=== PATIENT | female | born 1960 | race Caucasian/White ===

== ENCOUNTER → 2019-11-07 10:50 | Outpatient (BNVA) | payer OTHER, SELFPAY | PROVIDERS: Family Provider Family Medicine; Visit Provider Obstetrics & Gynecology | DX: N93.9 Abnormal uterine and vaginal bleeding, unspecified (principal) | CPT/HCPCS: 88305 ==

== ENCOUNTER → 2022-01-02 14:55 | Outpatient (BNVA) | payer OTHER, SELFPAY | PROVIDERS: Family Provider Family Medicine; PCP Family Medicine; Visit Provider Registered Nurse Neonatal Intensive Care | DX: M25.562 Pain in left knee (principal) | CPT/HCPCS: 73562 ==

== ENCOUNTER → 2022-01-25 13:56 | Outpatient (BNVA) | payer OTHER, SELFPAY | PROVIDERS: Family Provider Family Medicine; PCP Family Medicine; Visit Provider Orthopaedic Surgery | DX: M43.16 Spondylolisthesis, lumbar region (principal); M43.17 Spondylolisthesis, lumbosacral region | CPT/HCPCS: 72110 ==

== ENCOUNTER 2022-02-09 09:47 | Outpatient (CLI) | payer OTHER, SELFPAY ==
--- NOTE | 2022-02-09 09:30 | MR_ITS ---
WS: [id number] MRI LEFT KNEE NONCONTRAST TECHNIQUE: Axial PD, coronal PD fat sat, coronal PD, sagittal PD, and sagittal PD fat-sat images obta ined. CLINICAL INFORMATION: pain COMPARISON: None. FINDINGS: Distal quadriceps and patella tendons are intact. Large suprapatellar effusion. ACL is not visualized and appears completely torn. Normal PCL. ACL contusion pattern with bone contusions involving the an terolateral femoral condyle and posterior lateral tibial plateau. Chronic thinning of the medial and lateral meniscus. Moderate chondromalacia patella. Medial and lateral patellar retinaculum appear intact. Subcutaneous edema in the soft tissues. Lobulated popliteal cyst measuring 1.5 x 2.1 x 5.3 cm AP by transverse by craniocaudal. Evidence of posterior lateral corner injury with laxity anterior involving the lateral collateral lig ament complex with high-grade tear and biceps femoris distally. Tear of the popliteus and arcuate lig ament. Associated tear involving the posterior lateral meniscus with peripheral extrusion. Associated edema in this location. MR/MR knee LT wo con* [id number] IMPRESSION: 1. High-grade complete tear of the ACL. No normal fibers visualized. PCL appea rs intact. 2. Evidence of posterolateral corner injury with high-grade tear involving the lateral collateral ligament complex with laxity. Associated tears involving th e popliteus and arcuate ligament complex with fluid and edema. Posterior hernia tion and tear of the posterior lateral meniscus with associated fluid. 3. Large suprapatellar effusion. 4. ACL pattern contusion described above. 5. Lobulated popliteal cyst measuring 1.5 x 2.1 x 5.3 cm AP by transverse by c raniocaudal. Outbridge grading: grade III: partial-thickness cartilage loss with focal ulcer ation
== END 2022-02-09 09:48 | disposition home or self-care (01) ==
LOC: RAD 09:48
PROVIDERS: PCP Family Medicine; Visit Provider Orthopaedic Surgery
DX: M25.462 Effusion, left knee (principal); S83.512A Sprain of anterior cruciate ligament of left knee, initial encounter; M71.22 Synovial cyst of popliteal space [Baker], left knee; X58.XXXA Exposure to other specified factors, initial encounter
CPT/HCPCS: 73721

== ENCOUNTER 2022-02-09 11:27 | Outpatient (CLI) | payer OTHER, SELFPAY ==
--- NOTE | 2022-02-09 12:30 | MR_ITS ---
WS: [id number] MRI LUMBAR SPINE NONCONTRAST TECHNIQUE: Sagittal T1, T2 and STIR imaging. Axial T1 and T2 imaging. CLINICAL INFORMATION: Low back pain COMPARISON: MRI 2011 FINDINGS: Mild lumbar curve. No acute compression. Disc space narrowing worse L4-L5 and L5-S1. Severe central canal stenosis L3-L4 L1-L2: Normal. L2-L3: Normal. L3-L4: Grade 1 anterolisthesis L3 on L4. Disc bulging in combination with facet arthropathy and ligam entum flavum hypertrophy results in severe central canal stenosis. Moderate facet arthropathy. Imping ement traversing L4 nerve roots bilaterally. Foramen are patent. L4-L5: Mild disc bulging with impingement traversing RIGHT L5 nerve root in the subarticular recess. Correlation for RIGHT L5 nerve root symptoms. Mild facet arthropathy. Mild RIGHT and no significant L EFT foraminal narrowing. Mild central canal stenosis. L5-S1: Disc osteophyte complex with endplate ridging. Slight contact of the LEFT S1 nerve root. RIGHT eccentric osteophytic ridging contacts the far exiting RIGHT L5 nerve root. LEFT foramen is patent. Mild facet arthropathy. Visualized pelvic bony structures: Normal. Paravertebral soft tissues: Normal. MR/MR lumbar spine wo con* [id number] IMPRESSION: 1. Severe central canal stenosis L3-L4 is new since 2011. Impingement traversi ng L4 nerve roots bilaterally. 2. Mild central canal stenosis L4-L5 with impingement traversing RIGHT L5 nerv e root. Mild RIGHT L4-L5 foraminal narrowing. 3. Mild disc bulging L5-S1 slightly impinges the traversing LEFT S1 nerve root in the subarticular recess. Mild RIGHT L5-S1 foraminal narrowing laterally. 4. Advanced facet arthropathy L3-L4.
== END 2022-02-09 11:28 | disposition home or self-care (01) ==
LOC: RAD 11:28
PROVIDERS: PCP Family Medicine; Visit Provider Orthopaedic Surgery
DX: M48.061 Spinal stenosis, lumbar region without neurogenic claudication (principal); M51.27 Other intervertebral disc displacement, lumbosacral region; M47.816 Spondylosis without myelopathy or radiculopathy, lumbar region
CPT/HCPCS: 72148

== ENCOUNTER 2022-06-23 07:27 | Day surgery (SDC) | payer OTHER, SELFPAY ==
[2022-06-22 13:25] VITALS: BMI 30.5
[2022-06-23] VITALS (9 sets, daily range): BP systolic 115–159; BP diastolic 62–105; PULSE 76–91; RESP 14–19; TEMP 36.2–36.6; O2SAT 97–100
--- NOTE | 2022-06-23 07:21 | ECG_ITS ---
[facility] Test Date: 2022-06-23 Pat Name: Cassie Santos Department: Room: Gender: Female Cad Design Engineer: : [id number] Requested By: Trena Sims Order Number: [id number] Mango MD: Iris Gomez M.D. Measurements Intervals [place] Rate: 74 P: 6 MT: 135 QRS: -22 QRSD: 102 T: -13 QT: 378 QTc: 420 Interpretive Statements SINUS RHYTHM BORDERLINE LEFT AXIS DEVIATION [QRS AXIS < -20] MODERATE T-WAVE ABNORMALITY, CONSIDER ANTERIOR ISCHEMIA [-0.1+ mV T-WAVE IN V3/V4] Compared to ECG 08/26/2018 21:52:27 T-wave abnormality now present Possible ischemia now present Electronically Signed On 06-24-2022 8:15:52 GLUE COOK by Iris Gomez M.D. [id number]
[2022-06-23] MEDS: sodium chloride 0.9% 1,000 ML 30 ML IV (08:22)
[2022-06-23] MEDS: scopolamine 1.5 Patch 1 PATCH TRANSDERMA (08:22)
[2022-06-23] MEDS: acetaminophen 500 mg Tablet 1000 MG PO (08:22)
[2022-06-23] MEDS: CELEcoxib 200 mg Capsule 400 MG PO (08:23)
--- NOTE | 2022-06-23 08:36 | ANES.PREANE2 ---
Pre-Anesthetic Assessment Height/Weight: Height 1.63 m Weight 80.739 kg Temp Pulse Resp BP Pulse Ox O2 Del Method 97.7 F 76 16 159/105 99 06/23/22 07:46 06/23/22 07:46 06/23/22 07:46 06/23/22 07:46 06/23/22 07:46 06/23/22 07:48 Preop Diagnosis: Anterior cruciate ligament tear, lateral meniscal tear left knee Operation Date: 06/23/22 08:55 Proposed Procedures p left knee arthroscopy with debridement and other indicated procedures/ 14892,M17.12(Left) - Jamar Whitehead MD Familial anesthetic complications: Nausea Was Beta Umang taken within 24 hours: Yes Was Clonidine taken within 24 hours: N/A Last intake: Intake Last Liquid Date 06/22/22 Last Liquid Time 21:00 Last Solid Date 06/22/22 Last Solid Time 20:00 Social No alcohol and No tobacco former smoker Exam alert, oriented x 3, clear to auscultation bilaterally and regular rate & rhythm Airway Mallampati: Class II Dentition: partials CV/HEM Arrythmia (SVT (required DCV six times, stress an initiate an incident)) and Hypertension Anesthetic Plan ASA status: 3 Anesthesia: General Risk of > 500 ml blood loss (7ml/kg in children): No Medications/Allergies Home Medications Medication Instructions Recorded Confirmed Last Taken Type metoprolol succinate 25 mg capsule 25 mg PO DAILY 11/01/19 06/22/22 06/22/22 History sprinkle, ext. release 24 hr acetaminophen 500 mg tablet 500 mg PO Q6H PRN Pain 11/06/19 06/22/22 06/22/22 History (Tylenol Extra Strength) alprazolam 0.5 mg tablet (Xanax) 0.5 mg PO TID PRN anxiety #90 tabs 02/11/22 06/22/22 06/22/22 Rx ibuprofen 200 mg tablet (IBU-200) 200 mg PO Q6H PRN Pain 03/16/22 06/22/22 06/21/22 History chlorzoxazone 500 mg tablet 500 mg PO TID PRN muscle spasm 30 03/23/22 06/22/22 Unknown Rx days #90 tabs tirzepatide 5 mg/0.5 mL 5 mg SUBCUT Q7D 06/22/22 06/22/22 06/13/22 History subcutaneous pen injector (Mounjaro) Allergies Allergy/AdvReac Type Severity Reaction Status Date / Time cephalexin Allergy hives Verified 06/22/22 09:43 Current Medications Generic Name Dose Route Start Last Admin Trade Name Freq PRN Reason Stop Dose Admin Sodium Chloride 1,000 mls @ 30 mls/hr 06/23/22 07:45 06/23/22 08:22 Sodium Chloride 0.9% IV 06/24/22 07:44 30 mls/hr .Q24H MAURICIO Administration PFSH Anesthesia Medical History SVT (supraventricular tachycardia) Surgical History History of appendectomy History of knee surgery left, Dr. Alan History of tubal ligation (~1988) Family History Mother Heart disease Social History (Updated 06/22/22 @ 09:50 by Danyell Hutton LPN) Smoking and tobacco status: former smoker Second hand smoke exposure: No Alcohol intake: current Alcohol intake frequency: holidays/special occasions only Alcohol type: wine History of recent travel: No Data Anesthesia Cardiac Studies: No Data to Display
--- NOTE | 2022-06-23 08:50 | W.PM.OPSFHP ---
Same Day Surgery H&P Indication for Procedure/HPI DATE OF PROCEDURE: June 23, 2022 CHIEF COMPLAINT/INDICATIONFOR SURGICAL PROCEDURE: Anterior cruciate ligament tear, lateral meniscal tear degenerative joint disease left knee here for left knee arthroscopy PREOP DIAGNOSIS: Anterior cruciate ligament tear, lateral meniscal tear left knee PLANNED PROCEDURE: Operation Date: 06/23/22 08:55 Proposed Procedures p left knee arthroscopy with debridement and other indicated procedures/ 20991,M17.12(Left) - Jamar Whitehead MD 62-year-old female here for left knee arthroscopy left knee injury occurred when she stepped in a hole in December.? He has continued with outpatient physical therapy.? Received injection by Dr. Javier in the beginning of March.. She states that the injection made her pain better.? She states that overall her pain is much better.? She has much less swelling.? She still describes difficulty with some activities.? She states she cannot squat and get down on the floor.? As a result think she really enjoys such as horse riding have been unattainable for her.? She states she has feelings of her knee giving way.? She states she will walk and it feels as if something catches.? She had a previous lateral meniscectomy years ago and states that this feels very similar Medications/Allergies* Home Medications Medication Instructions Recorded Confirmed Type metoprolol succinate 25 mg capsule 25 mg PO DAILY 11/01/19 06/22/22 History sprinkle, ext. release 24 hr acetaminophen 500 mg tablet 500 mg PO Q6H PRN Pain 11/06/19 06/22/22 History (Tylenol Extra Strength) ibuprofen 200 mg tablet (IBU-200) 200 mg PO Q6H PRN Pain 03/16/22 06/22/22 History tirzepatide 5 mg/0.5 mL 5 mg SUBCUT Q7D 06/22/22 06/22/22 History subcutaneous pen injector (Mounjaro) Allergies/Adverse Reactions Allergy/AdvReac Type Severity Reaction Status Date / Time cephalexin Allergy hives Verified 06/22/22 09:43 Current Medications: Generic Name Dose Route Start Last Admin Trade Name Freq PRN Reason Stop Dose Admin Sodium Chloride 1,000 mls @ 30 mls/hr 06/23/22 07:45 06/23/22 08:22 Sodium Chloride 0.9% IV 06/24/22 07:44 30 mls/hr .Q24H MAURICIO Administration Pertinent History/Comorbid Conditions* Medical History (Updated 03/16/22 @ 08:56 by You Arzate MD) SVT (supraventricular tachycardia) Surgical History (Updated 11/05/19 @ 13:32 by Juwan Guevara MD) History of appendectomy History of knee surgery left, Dr. Alan History of tubal ligation (~1988) Family History (Updated 11/01/19 @ 14:00 by Krista Llamas LPN) Heart disease Mother Social History Smoking and tobacco status: former smoker Second hand smoke exposure: No Alcohol intake: current Alcohol intake frequency: holidays/special occasions only Alcohol type: wine History of recent travel: No Pertinent Exam Findings alert, oriented x 3, clear to auscultation bilaterally, regular rate & rhythm and operative site marked Left knee No effusion Tenderness medial lateral joint Motion full extension 120 degrees Increased translation on Jesús and positive pivot shift I cannot appreciate any collateral ligament laxity in full extension or slight flexion and she has no increased external rotation of the left leg Her patella tracks well Patellar crepitations are noted Recommendations Surgery/Procedure today Coding Level of Care Code Acute Code for Chg Fwd
[2022-06-23] MEDS: clindamycin 600 MG/50 ML PREMIX 100 MG IV (09:06)
[2022-06-23] MEDS: morphine 4 mg/mL SDV 1 mL 8 MG XX (09:32)
--- NOTE | 2022-06-23 09:51 | P.OP_ITS ---
Operative Report Date of procedure: June 23, 2022 Pre-op diagnosis: Preop Diagnosis Anterior cruciate ligament tear, lateral meniscal tear left knee Post-op diagnosis: same Post-op diagnosis: Left knee anterior cruciate ligament tear; medial lateral meniscal tear;grade IV chondromalacia medial femoral condyle, lateral femoral condyle, and medial tibial plateau Procedure done: Arthroscopic medial and lateral partial meniscectomies; chondroplasty medial femoral condyle lateral femoral condyle and medial tibial plateau left knee Pathology: none sent Surgeon: Jamar Whitehead Anesthesia: General Estimated blood loss (mL): 5 Complications: None Findings: Cassie had complete disruption of anterior cruciate ligament with no remaining of fibers. She had tearing of the central 50% of the medial and posterior lateral meniscus with otherwise reasonable margins. She had spotty areas of subchondral bone over the weightbearing aspect of both medial femoral condyles and the medial tibial plateau. Patellofemoral joint was relatively free of chondromalacia Condition: stable Disposition: PACU Brief History: Patient is a 62-year-old female who injured her left knee when she stepped in a hole. An MRI suggested degenerative changes, lateral meniscal tearing, and anterior cruciate ligament tear. Due to the degeneration of the knee she was not thought to be a candidate for a anterior cruciate ligament reconstruction. She was treated initially with physical therapy injections and anti- inflammatories with incomplete improvement. She is taken to the operating room for diagnostic arthroscopy to address pain in the knee. Procedure: Patient was taken to the operating room and given a general anesthesia. She was given 900 mg of clindamycin. She was prepped and draped the usual fashion with the left knee exposed. The knee was infiltrated with 30 cc of 0.5% Marcaine and 8 mg of morphine. A timeout was performed. Initially the knee was examined under anesthesia. She was noted to have a positive Jesús and positive pivot shift consistent with a suspected anterior cruciate ligament tear The knee was entered through the standard inferior medial and inferior lateral portal. Diagnostic portion arthroscopy was performed. Initial attention was begun in the lateral compartment. Tearing was identified in the central 50% of the posterior lateral meniscus. A basket was used to debride the meniscus back to a stable rim. This was cleaned up with an incisor shaver and the Major and Nephew Werewolf probe leaving approximately 50% of the far posterior medial meniscus behind. Additional areas of cartilage thinning with flaps and exposed subchondral bone were identified over the lateral compartment. These were lightly debrided with the werewolf probe creating a stable base of tissue. Attention was then focused on the medial compartment. Tearing was identified throughout the posterior and middle thirds centrally in the medial meniscus. The werewolf cautery was used to debride the meniscus back removing approximately 50% of the meniscus. Central exposed subchondral bone were identified over the posterior medial and anterior lateral aspects of the medial femoral condyle. Unstable flaps and fissures were debrided back with the werewolf probe creating stable margins. Again exposed subchondral bone was identified in both areas. \ The knee was irrigated with saline. Portals were closed with 3-0 Prolene. Sterile dressings were applied. The patient was extubated and taken to the recovery in stable condition.
[2022-06-23] MEDS: ketorolac 30 mg/mL INJ IM (11:31)
--- NOTE | 2022-06-23 17:15 | ANE.PACU2 ---
Inpatient post-anesthesia follow up: Airway intact: Yes Vital signs: Temperature 97.8 F Pulse Rate 80 Respiratory Rate 16 Blood Pressure 120/85 Pulse Oximetry 99 Oxygen Delivery Me thod Room Air Oxygen Flow Rate 6 Fraction of Inspir ed Oxygen Hydration adequate: Yes Nausea and vomiting: No Pain level: 1 Mental status: Baseline
== END 2022-06-23 12:05 | disposition home or self-care (01) ==
PROVIDERS: PCP Family Medicine; Visit Provider Orthopaedic Surgery
PROC: (CPT 29870; principal; 2022-06-23 08:55)
PROC: (CPT 29880; 2022-06-23 08:55)
DX: S83.512A Sprain of anterior cruciate ligament of left knee, initial encounter (principal); S83.282A Other tear of lateral meniscus, current injury, left knee, initial encounter; X58.XXXA Exposure to other specified factors, initial encounter; Z87.891 Personal history of nicotine dependence
CPT/HCPCS: 29880; 93005; J1100; J1170; J1200; J1885; J2250; J2270; J2405; J2704; J3010; J3490; J7030

== ENCOUNTER → 2022-10-11 12:07 | Outpatient (BNVA) | payer OTHER, SELFPAY | PROVIDERS: PCP Family Medicine; Visit Provider Nurse Practitioner Family | DX: M19.042 Primary osteoarthritis, left hand (principal) | CPT/HCPCS: 73130 ==

== ENCOUNTER → 2022-10-17 08:42 | Outpatient (BNVA) | payer OTHER, SELFPAY | PROVIDERS: PCP Family Medicine; Visit Provider Family Medicine | DX: Z00.00 Encounter for general adult medical examination without abnormal findings (principal); Z13.6 Encounter for screening for cardiovascular disorders | CPT/HCPCS: 80053; 80061; 85025 ==

== ENCOUNTER → 2023-01-24 13:46 | Outpatient (BNVA) | payer BC, SELFPAY | PROVIDERS: PCP Family Medicine; Visit Provider Orthopaedic Surgery | DX: M51.16 Intervertebral disc disorders with radiculopathy, lumbar region (principal); M48.061 Spinal stenosis, lumbar region without neurogenic claudication | CPT/HCPCS: 72100 ==

== ENCOUNTER → 2023-03-23 09:39 | Outpatient (BNVA) | payer BC, SELFPAY | PROVIDERS: PCP Family Medicine; Visit Provider Family Medicine | DX: Z01.818 Encounter for other preprocedural examination (principal) | CPT/HCPCS: 80053; 81000; 85025 ==

== ENCOUNTER 2023-03-24 06:47 | Day surgery (SDC) | payer BC, SELFPAY ==
[2023-03-24] VITALS (7 sets, daily range): BP systolic 122–153; BP diastolic 70–93; PULSE 63–97; RESP 16–18; TEMP 36.1–36.4; O2SAT 97–100
--- NOTE | 2023-03-24 | XRR_ITS ---
PROCEDURE INFORMATION: Exam: XR Spine; Lumbar Exam date and time: 03/24/2023 9:46 AM Age: 63 years old Clinical indication: Symptoms: L3-4; L5-s1 decompression, or pic TECHNIQUE: Imaging protocol: XR of the spine. Exam focused on the lumbar spine. Views: 1 view. 1 view. COMPARISON: No relevant prior studies available. FINDINGS: Bones/joints: Inter operative fluoro spot image of the lower lumbar spine shows the presence of metallic orthopedic appliance overlying the lower spine. The visible bones do not show abnormality. No acute fracture. Normal alignment. Soft tissues: Normal. XR/XR lumbar spine 1V [id number] IMPRESSION: 1. No acute findings. 2. Operative device overlying the lower spine
[2023-03-24] MEDS: scopolamine 1.5 Patch 1 PATCH TRANSDERMA (07:20)
[2023-03-24] MEDS: sodium chloride 0.9% 1,000 ML 30 ML IV (07:20)
[2023-03-24] MEDS: vancomycin 1,000 MG in sodium chloride 0.9% 250 ML 250 MG IV (07:21)
[2023-03-24] MEDS: famotidine 20 mg/2 mL INJ IVP (07:23)
[2023-03-24 08:07] LABS: OR HCG Qualitative Urine Negative (Negative)
--- NOTE | 2023-03-24 08:45 | ANES.PREANE2 ---
Pre-Anesthetic Assessment Height/Weight: Height 1.63 m Weight 76.204 kg Temp Pulse Resp BP Pulse Ox O2 Del Method 97.5 F L 76 18 153/93 97 Room Air 03/24/23 06:52 03/24/23 06:52 03/24/23 06:52 03/24/23 06:52 03/24/23 06:52 03/24/23 07:12 Preop Diagnosis: Lumbar Stenosis Operation Date: 03/24/23 08:25 Proposed Procedures p Lumbar Spine Decompression/ left L3-4 L 5/S1 min invasive decompression(Left) - Almas Gutierrez, Familial anesthetic complications: none Was Beta Umang taken within 24 hours: Yes Was Clonidine taken within 24 hours: N/A Last intake: Intake Last Liquid Date 03/23/23 Last Liquid Time 23:30 Last Solid Date 03/23/23 Last Solid Time 23:00 Social No alcohol and No tobacco Exam alert, oriented x 3, clear to auscultation bilaterally and regular rate & rhythm Airway Submandibular: within normal limits Cervical ROM: within normal limits Mallampati: Class II Dentition: partials CV/HEM Arrythmia (SVT) Musc/skel Lower Back Pain and Osteoarthritis/DJD Neuropsych Anxiety Anesthetic Plan ASA status: 2 Anesthesia: General Medications/Allergies Home Medications Medication Instructions Recorded Confirmed Last Taken Type acetaminophen 500 mg tablet 500 mg PO Q6H PRN Pain 11/06/19 03/23/23 03/23/23 History (Tylenol Extra Strength) ibuprofen 200 mg tablet (IBU-200) 200 mg PO Q6H PRN Pain 03/16/22 03/23/23 03/14/23 History chlorzoxazone 500 mg tablet 500 mg PO TID PRN muscle spasm 30 03/23/22 03/23/23 03/21/23 Rx days #90 tabs tirzepatide 5 mg/0.5 mL 5 mg SUBCUT Q7D 06/22/22 03/23/23 03/15/23 History subcutaneous pen injector (Geoff) metoprolol succinate 25 mg See Rx Instructions .Route 01/26/23 03/23/23 03/23/23 Rx tablet,extended release 24 hr .COMPLEX #180 tabs alprazolam 1 mg tablet 1 mg PO TID PRN anxiety #90 tabs 02/20/23 03/23/23 03/23/23 Rx Allergies Allergy/AdvReac Type Severity Reaction Status Date / Time cephalexin Allergy hives Verified 03/24/23 06:56 Current Medications Generic Name Dose Route Start Last Admin Trade Name Messi PRN Reason Stop Dose Admin Sodium Chloride 1,000 mls @ 30 mls/hr 03/24/23 07:00 03/24/23 07:20 Sodium Chloride 0.9% IV 03/25/23 06:59 30 mls/hr .Q24H MAURICIO Administration PFSH Anesthesia Medical History SVT (supraventricular tachycardia) Surgical History History of appendectomy History of knee surgery left, Dr. Alan History of tubal ligation (~1988) Family History Mother Heart disease Social History Smoking and tobacco/nicotine status: former use of tobacco/nicotine Second hand smoke exposure: No Alcohol intake: current Alcohol intake frequency: holidays/special occasions only Alcohol type: wine Substance/Drug Use: never Data Anesthesia Cardiac Studies: No Data to Display
--- NOTE | 2023-03-24 08:54 | W.PM.OPSUD ---
Surgery/Procedure H&P Update DATE OF PROCEDURE: March 24, 2023 DATE H&P PERFORMED: 05/20/22 H&P UPDATE INFORMATION: I have reviewed H&P completed within last 30 days, I have examined patient prior to procedure and No changes to prior documentation PREOP DIAGNOSIS: Lumbar Stenosis PLANNED PROCEDURE: Operation Date: 03/24/23 08:25 Proposed Procedures p Lumbar Spine Decompression/ left L3-4 L 5/S1 min invasive decompression(Left) - Almas Gutierrez DO
--- NOTE | 2023-03-24 08:56 | W.PM.OPSUD ---
Surgery/Procedure H&P Update DATE OF PROCEDURE: March 24, 2023 DATE H&P PERFORMED: 03/23/23 H&P UPDATE INFORMATION: I have reviewed H&P completed within last 30 days, I have examined patient prior to procedure and No changes to prior documentation PREOP DIAGNOSIS: Lumbar Stenosis PLANNED PROCEDURE: Operation Date: 03/24/23 08:25 Proposed Procedures p Lumbar Spine Decompression/ left L3-4 L 5/S1 min invasive decompression(Left) - Almas Gutierrez DO
[2023-03-24] MEDS: lidocaine-epi 2% 20 mL INJ INJECTION (10:00)
--- NOTE | 2023-03-24 10:34 | P.OP_ITS ---
Operative Report Date of procedure: March 24, 2023 Pre-op diagnosis: Lumbar stenosis with neurogenic claudication Procedure done: 1. L3-4 laminectomy with partial facetectomy 2. L5-S1 laminectomy with partial facetectomy Surgeon: Almas Gutierrez DO Estimated blood loss (mL): 10 Procedure: 1. L3-4 laminectomy with partial facetectomy 2. L5-S1 laminectomy with partial facetectomy Patient is brought to the operative suite. After undergoing anesthesia they are placed in the prone position. All areas of impingement are well padded. Patient is then prepped and draped in the normal sterile fashion. A skin incision is made over the L3/4 level. This is confirmed under c-arm guidance. A series of dilators are passed and the tubular retractor is docked on the L3 lamina. A bovie is used to clear the soft tissue off the lamina and the L 3/4 facet joint. A high speed daniel is then used to perform the l aminectomy and take down the medial aspect of the L 3/4 facet joint. A kerrison rongeure was then used to take down the remaining lamina and smooth the edge of the laminectomy up to the point where the ligamentum flavum attaches. Attention was then brought to the medial aspect of the facet joint. The remaining medial aspect of the superior and inferior aspect of the facet joint were taken down with the kerrison from the pedicle of L3 to L 4. The facet joint had significant hypertrophy. Attention was then brought to the Ligamentum Flavum. The ligament was taken down from the lamina of L3 to L4 and out medially to the remaining facet joint. The ligament was thick. The dura was then exposed. The dura was in good repair. The L3 nerve was then traced with a curette out the L3/4 foramen and found to be adequately decompressed. The L4 nerve was traced with a curette around the L4 pedicle. The lateral recess was opened with a kerrison helping to further decompress the L4 nerve. Wound is then irrigated copiously with saline and surgiflo is used to stop any bleeding. The tubular retractor is removed and the A skin incision is made over the L5/S1 level. This is confirmed under c-arm guidance. A series of dilators are passed and the tubular retractor is docked on the L5 lamina. A bovie is used to clear the soft tissue off the lamina and the L 5/S1 facet joint. A high speed daniel is then used to perform the laminectomy and take down the medial aspect of the L 5/S1 facet joint. A kerrison rongeure was then used to take down the remaining lamina and smooth the edge of the laminectomy up to the point where the ligamentum flavum attaches. Attention was then brought to the medial aspect of the facet joint. The remaining medial aspect of the superior and inferior aspect of the facet joint were taken down with the kerrison from the pedicle of L5 to S1. The facet joint had significant hypertrophy. Attention was then brought to the Ligamentum Flavum. The ligament was taken down from the lamina of L5 to S1 and out medially to the remaining facet joint. The ligament was thick. The dura was then exposed. The dura was in good repair. The L5 nerve was then traced with a curette out the L5/S1 foramen and found to be adequately decompressed. The S1 nerve was traced with a curette around the S1 pedicle. The lateral recess was opened with a kerrison helping to further decompress the S1 nerve. Wound is then irrigated copiously with saline and surgiflo is used to stop any bleeding. The tubular retractor is removed and the wound is closed with vicryl and monocryl suture. Glue is then used to protect the wound. A sterile dressing is then placed. Patient was then placed in the supine position and transferred to the PACU in stable condition.
[2023-03-24] MEDS: HYDROcodone-acetaminophen 5-325 mg Tablet 2 TAB PO (11:04)
[2023-03-24] MEDS: ondansetron 2 mg/ML SDV 2 mL 4 MG IVP (11:04)
--- NOTE | 2023-03-24 12:46 | ANE.PACU2 ---
Inpatient post-anesthesia follow up: Airway intact: Yes Vital signs: Temperature 97 F Pulse Rate 66 Respiratory Rate 16 Blood Pressure 130/76 Pulse Oximetry 99 Oxygen Delivery Me thod Room Air Oxygen Flow Rate Fraction of Inspir ed Oxygen Hydration adequate: Yes Nausea and vomiting: No Pain level: 3 Mental status: Baseline
== END 2023-03-24 12:10 | disposition home or self-care (01) ==
PROVIDERS: PCP Family Medicine; Visit Provider Orthopaedic Surgery
PROC: (CPT 63005; principal; 2023-03-24 08:25)
DX: M48.062 Spinal stenosis, lumbar region with neurogenic claudication (principal); Z87.891 Personal history of nicotine dependence
CPT/HCPCS: 63047; 63048; 72020; 76000; 81025; 84703; J1100; J2405; J2704; J2710; J3010; J3370; J3490; J7030; J7050

== ENCOUNTER → 2023-04-27 11:25 | Outpatient (BNVA) | payer BC, SELFPAY | PROVIDERS: PCP Family Medicine; Visit Provider Physician Assistant | DX: M48.061 Spinal stenosis, lumbar region without neurogenic claudication (principal); M43.16 Spondylolisthesis, lumbar region; M51.36 Other intervertebral disc degeneration, lumbar region | CPT/HCPCS: 72100 ==

== ENCOUNTER 2023-10-06 15:21 | Outpatient (CLI) | payer OTHER, SELFPAY ==
--- NOTE | 2023-10-06 15:25 | US_ITS ---
WS: [id number] THYROID ULTRASOUND HISTORY: R94.6 abnormal lab values. COMPARISON: None available. Right lobe: 1.3 cm x 1.1 cm x 3.1 cm (w x ap x l). Volume: 2.3 cm3. Normal size spleen. Several small hypoechoic nodules which are subcentimeter. No echogenic foci. No suspicious mass or no dule. No increased vascularity. Left lobe: 1.1 cm x 1.0 cm x 2.8 cm (w x ap x l). Volume: 1.5 cm3. Small caliber gland. Simple cyst towards the isthmus measures 0.8 x 0.4 x 1.0 cm. Hypoechoic subsolid nodule in the superior gland measures 0.5 x 0.5 x 0.8 cm. Isthmus: 0.3 cm. US/US thyroid [id number] IMPRESSION: 1. TI-RADS 3: None of the thyroid nodules exhibit TI-RADS criteria warranting additional imaging. 2. Small bilateral thyroid nodules.
== END 2023-10-06 15:22 | disposition home or self-care (01) ==
LOC: RAD 15:22
PROVIDERS: PCP Family Medicine; Visit Provider Nurse Practitioner Family
DX: R94.6 Abnormal results of thyroid function studies (principal); E04.2 Nontoxic multinodular goiter
CPT/HCPCS: 76536

== ENCOUNTER → 2023-10-27 08:17 | Outpatient (BNVA) | payer OTHER, SELFPAY | PROVIDERS: PCP Family Medicine; Visit Provider Family Medicine | DX: E04.1 Nontoxic single thyroid nodule (principal); M25.50 Pain in unspecified joint; M19.90 Unspecified osteoarthritis, unspecified site; E03.9 Hypothyroidism, unspecified | CPT/HCPCS: 85651; 86140; 86160; 86162; 86235; 86255; 86376 ==

== ENCOUNTER → 2024-01-16 13:53 | Outpatient (BNVA) | payer OTHER, SELFPAY | PROVIDERS: PCP Family Medicine; Visit Provider Orthopaedic Surgery | DX: M54.2 Cervicalgia (principal) | CPT/HCPCS: 72050 ==

== ENCOUNTER 2024-04-19 06:58 | Outpatient (RCR) | payer OTHER, SELFPAY | END 2024-05-14 23:59 | disposition home or self-care (01) | LOC: SPT 06:58 | PROVIDERS: Visit Provider Orthopaedic Surgery | DX: M54.9 Dorsalgia, unspecified (principal); G89.29 Other chronic pain | CPT/HCPCS: 97110; 97161 ==

== ENCOUNTER 2024-05-15 06:00 | Outpatient (RCR) | payer OTHER, SELFPAY | END 2024-05-31 23:59 | disposition home or self-care (01) | LOC: SPT 06:00 | PROVIDERS: Visit Provider Orthopaedic Surgery | DX: M54.9 Dorsalgia, unspecified (principal); G89.29 Other chronic pain | CPT/HCPCS: 97110 ==

== ENCOUNTER → 2024-06-06 09:03 | Outpatient (BNVA) | payer OTHER, SELFPAY | PROVIDERS: PCP Family Medicine; Visit Provider Physician Assistant | DX: M17.12 Unilateral primary osteoarthritis, left knee; M23.52 Chronic instability of knee, left knee | CPT/HCPCS: 73560; 73565 ==

== ENCOUNTER 2024-09-05 06:14 | Outpatient (CLI) | payer OTHER, SELFPAY ==
--- NOTE | 2024-09-05 06:30 | MR_ITS ---
WS: [id number] MRI LUMBAR SPINE NONCONTRAST HISTORY: lumbar pain radiating to both lower extremities. Prior lumbar surgery. COMPARISON: 02/09/2022 TECHNIQUE: Sagittal and axial multisequence imaging is submitted. L3 anterolisthesis by 5.8 mm similar to the prior examination. No acute fracture. Mild reactive chronic marrow edema in L4 and L5 endplates. Disc spaces are narrowed most significantly at L4-5 and L5-S1. Conus terminates normally at L1-2 disc level. L1-L2: Normal. L2-L3: Mild ligamentum flavum and facet arthritis. No stenosis. L3-L4: Anterolisthesis of L3 with unroofing of the disc. Annular disc bulging encroaching upon the ventral thecal sac and subarticular recesses. LEFT laminectomy defect is noted. Defect is new since the prior examination. The osteophyte encroachment from the facets encroach into the posterior lateral t hecal sac with deformity and contact on nerve roots. Thecal sac is being deformed by a combination of the anterolisthesis and facet arthritis and disc disease. Severe central and bilateral subarticular recess and moderate foraminal stenosis, RIGHT greater than LEFT. L4-L5: Annular disc bulging with disc contacting the traversing L5 nerve roots in the subarticular recesses. Minimal ligamentum flavum hypertrophy with moderate facet arthritis. Disc osteophyte in the foramina resulting in moderate RIGHT and mild LEFT foraminal stenosis. L5-S1: Mild annular disc bulging with minimal encroachment upon the S1 nerve roots. Mild osteophytic ridging and disc disease resulting in mild to moderate bilateral foraminal stenosis with mild contact on the exiting L5 nerve roots. Paravertebral soft tissues are normal. MR/MR lumbar spine wo con* [id number] IMPRESSION: 1. No acute fractures. 2. Grade 1 anterolisthesis of L3. 3. L3-4: Severe central and bilateral subarticular recess and moderate foramin al stenosis at L3-4. Facet osteophytes encroach upon the posterior lateral thec al sac. Significant contact remains on the traversing L4 nerve roots. 4. New LEFT laminectomy defect at L3-4. 5. L4-5: Disc contacts the traversing L5 nerve roots in the subarticular reces ses. Disc osteophyte in the foramina result in moderate RIGHT and mild LEFT for aminal stenosis. Mild progression since the prior study. 6. L5-S1: Disc osteophyte disease bilaterally in the foramina resulting in mil d to moderate bilateral foraminal stenosis. Similar to the prior study.
== END 2024-09-05 06:15 | disposition home or self-care (01) ==
PROVIDERS: PCP Family Medicine; Visit Provider Orthopaedic Surgery
DX: M51.16 Intervertebral disc disorders with radiculopathy, lumbar region (principal); M43.16 Spondylolisthesis, lumbar region; M79.604 Pain in right leg; M79.605 Pain in left leg; M48.061 Spinal stenosis, lumbar region without neurogenic claudication; M25.78 Osteophyte, vertebrae; M96.89 Other intraoperative and postprocedural complications and disorders of the musculoskeletal system; M51.369 Other intervertebral disc degeneration, lumbar region without mention of lumbar back pain or lower extremity pain; M48.07 Spinal stenosis, lumbosacral region; M24.28 Disorder of ligament, vertebrae; M47.896 Other spondylosis, lumbar region; M51.379 Other intervertebral disc degeneration, lumbosacral region without mention of lumbar back pain or lower extremity pain
CPT/HCPCS: 72148

== ENCOUNTER 2024-09-20 07:20 | Outpatient (RCR) | payer OTHER, SELFPAY | END 2024-10-12 23:59 | disposition home or self-care (01) | LOC: SPT 07:20 | PROVIDERS: PCP Family Medicine; Visit Provider Physician Assistant | DX: M17.12 Unilateral primary osteoarthritis, left knee (principal) | CPT/HCPCS: 97110; 97140; 97162 ==

== ENCOUNTER 2024-10-01 08:25 | Outpatient (RCR) | payer OTHER, SELFPAY | END 2024-10-12 23:59 | disposition home or self-care (01) | LOC: SPT 08:25 | PROVIDERS: PCP Family Medicine; Visit Provider Orthopaedic Surgery | DX: M54.2 Cervicalgia (principal); G89.29 Other chronic pain | CPT/HCPCS: 97162 ==

== ENCOUNTER 2024-10-13 06:30 | Outpatient (RCR) | payer OTHER, SELFPAY | END 2024-10-24 12:33 | disposition home or self-care (01) | LOC: SPT 06:30 | PROVIDERS: PCP Family Medicine; Visit Provider Physician Assistant | DX: M17.12 Unilateral primary osteoarthritis, left knee (principal) | CPT/HCPCS: 97110; 97140; 97530 ==

== ENCOUNTER 2024-10-23 08:36 | Outpatient (CLI) | payer OTHER, SELFPAY ==
--- NOTE | 2024-10-23 08:45 | MR_ITS ---
WS: [id number] MRI CERVICAL SPINE NONCONTRAST TECHNIQUE: Sagittal T1, T2 and STIR imaging. Axial T2, gradient, and fiesta imaging. CLINICAL INFORMATION: cervical pain COMPARISON: None. FINDINGS: Straightening of the normal cervical lordosis. Mild spondylitic changes. Cord signal is normal. C2-C3: Mild facet arthropathy. Spinal canal and foramen are patent. C3-C4: Mild disc osteophyte complex with endplate ridging. Mild facet arthropathy. Foramen are patent. C4-C5: Disc osteophyte complex with endplate ridging. Mild facet arthropathy. Mild LEFT bony foraminal narrowing. C5-C6: Disc osteophyte complex with endplate ridging. Uncovertebral joint hypertrophy. Severe LEFT and moderate to severe RIGHT bony foraminal narrowing. Mild central canal stenosis. C6-C7: Disc osteophyte complex with uncovertebral joint hypertrophy. Severe LEFT bony foraminal narrowing. Mild central canal stenosis. C7-T1: Disc osteophyte ridging. Mild LEFT and no significant RIGHT foraminal narrowing. Visualized brain stem structures: Normal. Prevertebral soft tissues: Normal. MR/MR cervical spin wo con* [id number] IMPRESSION: 1. Straightening of the normal cervical lordosis. Cord signal is normal. 2. Mild central canal stenosis C5-C6 and C6-C7 due to disc osteophyte complexe s. 3. Moderate to severe bony foraminal narrowing worse at bilateral C5-6 worse i n the LEFT and LEFT C6-7. 4. Mild LEFT C7-T1 bony foraminal narrowing.
== END 2024-10-23 08:37 | disposition home or self-care (01) ==
LOC: RAD 08:38
PROVIDERS: PCP Family Medicine; Visit Provider Orthopaedic Surgery
DX: M47.22 Other spondylosis with radiculopathy, cervical region (principal); M48.02 Spinal stenosis, cervical region
CPT/HCPCS: 72141

== ENCOUNTER → 2024-11-25 08:29 | Outpatient (BNVA) | payer OTHER, SELFPAY | PROVIDERS: PCP Family Medicine; Visit Provider Family Medicine | DX: F41.9 Anxiety disorder, unspecified (principal); I10 Essential (primary) hypertension; E04.1 Nontoxic single thyroid nodule; M48.061 Spinal stenosis, lumbar region without neurogenic claudication | CPT/HCPCS: 80053; 80061; 82306; 82607; 83036; 84443; 85025 ==

== ENCOUNTER → 2024-12-31 11:04 | Outpatient (BNVA) | payer OTHER, SELFPAY | PROVIDERS: PCP Family Medicine; Visit Provider Registered Nurse Neonatal Intensive Care | DX: M79.642 Pain in left hand (principal); M19.042 Primary osteoarthritis, left hand | CPT/HCPCS: 73130 ==

== ENCOUNTER 2025-02-14 08:25 | Outpatient (RCR) | payer OTHER, SELFPAY | END 2025-03-14 23:59 | disposition home or self-care (01) | LOC: SPT 08:25 | PROVIDERS: Visit Provider Physician Assistant | DX: M17.12 Unilateral primary osteoarthritis, left knee (principal) | CPT/HCPCS: 97110; 97162 ==

== ENCOUNTER 2025-02-19 10:20 | Outpatient (CLI) | payer OTHER, SELFPAY ==
--- NOTE | 2025-02-19 10:24 | MM_ITS ---
WS: [id number] BILATERAL SCREENING DIGITAL TOMOSYNTHESIS MAMMOGRAM WITH CAD HISTORY: SCREENING COMPARISON: None available. Bilateral CC and MLO views with tomosynthesis and synthetic mammography submitted. Computer aided detection analyzed. Breast composition: There are scattered areas of fibroglandular density. No suspicious masses, microcalcifications or architectural distortion. Benign scattered calcifications. MM/MM scr BI tomosynthesis [id number] IMPRESSION: BI-RADS: 2 - Benign. FOLLOW UP: 1 Year Follow-up
== END 2025-02-19 10:21 | disposition home or self-care (01) ==
PROVIDERS: PCP Family Medicine; Visit Provider Family Medicine
DX: Z12.31 Encounter for screening mammogram for malignant neoplasm of breast (principal); R92.323 Mammographic fibroglandular density, bilateral breasts; R92.1 Mammographic calcification found on diagnostic imaging of breast
CPT/HCPCS: 77063; 77067

== ENCOUNTER 2025-03-15 05:00 | Outpatient (RCR) | payer OTHER, SELFPAY | END 2025-04-13 23:59 | disposition home or self-care (01) | LOC: SPT 05:00 | PROVIDERS: PCP Family Medicine; Visit Provider Physician Assistant | DX: M17.12 Unilateral primary osteoarthritis, left knee (principal) | CPT/HCPCS: 97110 ==